=== PATIENT | female | born 1930 | race Caucasian/White ===

== ENCOUNTER 2017-08-06 10:26 | Emergency (ER) | payer OTHER ==
[2017-08-06] MEDS ORDERED: SPIRIVA18 MCG INH (11:55)
[2017-08-06] MEDS ORDERED: SIMVASTATIN10 M1 PO (11:56)
[2017-08-06] MEDS ORDERED: BENICAR HCT 401 EAC1 PO (11:56)
[2017-08-06] MEDS ORDERED: METOPROLOL SUCC50 M2 PO (11:57)
[2017-08-06] MEDS ORDERED: MONTELUKAST SOD10 M1 PO (11:58)
[2017-08-06] MEDS ORDERED: QVAR8.7 G1 INH (11:58)
[2017-08-06] MEDS ORDERED: LEVOTHYROXINE75 MCG PO (11:59)
[2017-08-06 12:16] LABS: ABSOLUTE BASOPHIL COUNT 0 /CUMM (0.0-0.2); ABSOLUTE EOSINOPHIL COUNT 0.1 /CUMM (0.0-0.7); ABSOLUTE GRANULOCYTE CT 5.4 /CUMM (1.4-6.5); ABSOLUTE LYMPH COUNT 1.3 /CUMM (1.2-3.4); ABSOLUTE MONOCYTE COUNT 0.4 /CUMM (0.10-0.60); BASOPHIL % 0.3 % (0.0-2.0); EOSINOPHIL % 1.1 % (0-5); GRANULOCYTE % 74.5 % (42.2-75.2); HEMATOCRIT 36.2 % (37-47); MEAN CORPUSCULAR HGB 25.9 PG (27.0-31.0); MEAN CORPUSCULAR HGB CONC 32.7 G/DL (33.0-37.0); MEAN CORPUSCULAR VOLUME 79.2 FL (81.0-99.0); MEAN PLATELET VOLUME 7.7 FL (7.4-10.4); PLATELET COUNT 262 /CUMM (130-400); RBC DISTRIBUTION WIDTH 17.5 % (11.5-14.5); RED BLOOD CELL CT 4.58 /CUMM (4.20-5.40); WHITE BLOOD CELL COUNT 7.2 /CUMM (4.8-10.8)
[2017-08-06 12:22] LABS: PT 11.4 SEC (9.4-12.5); PTT 37 SEC (25-37)
--- NOTE | 2017-08-06 12:54 | ED NOSE COMPLAINT ---
History of Present Illness General Chief Complaint: Epistaxis/Nasal Foreign Body Stated Complaint: EPIISTAXIS Source: patient Exam Limitations: no limitations Vital Signs & Intake/Output Vital Signs & Intake/Output Vital Signs Date Time Temp Pulse Resp B/P B/P Pulse O2 O2 Flow FiO2 Mean Ox Delivery Rate 08/06 1312 55 16 146/70 99 Room Air 08/06 1237 56 18 133/61 97 Room Air 08/06 1223 52 18 164/72 95 Room Air 08/06 1220 54 18 212/90 08/06 1218 95 08/06 1134 20 212/91 08/06 1031 98.6 60 18 200/80 98 Room Air Allergies Coded Allergies: losartan (HIVES/RASH 08/06/17) Reconcile Medications Beclomethasone Dipropionate (QVAR) 80 MCG AER.W.ADAP 2 PUF INH BID COPD ( Reported) Levothyroxine Sodium 75 MCG TABLET 1 TAB PO DAILY HYPOTHYROIDISM (Reported) Metoprolol Succinate 50 MG TAB.ER.24H 1 TAB PO DAILY HYPERTENSION (Reported) Montelukast Sodium 10 MG TABLET 1 TAB PO DAILY COPD (Reported) Olmesartan/Hydrochlorothiazide (Benicar Hct 40-25 MG Tablet) 40 MG-25 MG TABLET 1 TAB PO DAILY HYPERTENSION (Reported) Simvastatin (Simvastatin*) 10 MG TABLET 1 TAB PO QPM HYPERLIPIDEMIA (Reported ) Tiotropium [place] (Spiriva) 18 MCG CAP.W.DEV 1 CAP INH DAILY ASTHMA ( Reported) Triage Note: 86 YO FEMALE TO TRIAGE WITH EPISTAXIS. STATES NOSE HAS BEEN BLEEDING SINCE THIS AM. REPORTS HER NOSE HAS BEEN BLEEDING ON/OFF FOR DAYS. PT HYPERTENISVE IN TRIAGE, STATES SHE WAS UNABLE TO TAKE BP MEDS THIS AM DUE TO THE BLEEDING. PT TAKES DAILY ASA. BP 200/80 IN TRIAGE. Triage Nurses Notes Reviewed? yes Onset: Abrupt Duration: day(s):, constant Timing: recent history Injury Environment: home Severity: moderate No Modifying Factors: none HPI: 86-year-old female comes into the emergency room for evaluation of nosebleed. Patient reports that she's been having intermittent nosebleeds going on for the past month. She started on this morning. She comes in for further evaluation. She denies any headache lightheaded dizziness chest pain shortness of breath or any other associated symptoms. She reports that other than the nosebleed she feels completely fine. (Jose J Olmstead) Past History Travel History Traveled to [place] past 21 day No Medical History Any Pertinent Medical History? see below for history Cardiovascular: hypertension Respiratory: COPD Pneumonia Vaccine: 07/20/11 Surgical History Surgical History: non-contributory Psychosocial History Who do you live with Sister Services at Home None What is your primary language Pashto Tobacco Use: Never used Family History Hx Contributory? No (Jose J Olmstead) Review of Systems Review of Systems Constitutional: Reports: no symptoms. EENTM: Reports: see HPI. Respiratory: Reports: no symptoms. Cardiovascular: Reports: no symptoms. GI: Reports: no symptoms. Genitourinary: Reports: no symptoms. Musculoskeletal: Reports: no symptoms. Skin: Reports: no symptoms. Neurological/Psychological: Reports: no symptoms. Hematologic/Endocrine: Reports: no symptoms. Immunologic/Allergic: Reports: no symptoms. All Other Systems: Reviewed and Negative (Jose J Olmstead) Physical Exam Physical Exam General Appearance: well developed/nourished, mild distress Head: atraumatic Eyes: Bilateral: normal appearance. Nose: active bleeding (right nostril), small ooze anterior nostril Mouth/Throat: normal mouth inspection, pharynx normal Neck: normal inspection Cardiovascular/Respiratory: no respiratory distress Back: normal inspection Neurologic/Psych: awake, alert, oriented x 3, normal mood/affect Skin: intact, normal color, warm/dry (Jose J Olmstead) Progress Differential Diagnoses I considered the following diagnoses in my evaluation of the patient: Epistaxis , hypertension, hypertensive urgency, Plan of Care: Orders Procedure Date/time Status PARTIAL THROMBOPLASTIN TIME 08/06 1154 Complete PROTHROMBIN TIME 08/06 1154 Complete CBC WITHOUT DIFFERENTIAL 08/06 1154 Complete BASIC METABOLIC PANEL 08/06 1154 Complete Current Medications Sig/Didier Start time Last Medication Dose Stop Time Status Admin Labetalol HCl 10 MG ONCE ONE 08/06 1200 CAN (Trandate) 08/06 1201 Laboratory Tests 08/06/17 1203: Anion Gap 11, Estimated GFR 33 L, BUN/Creatinine Ratio 22.0, Glucose 118 H, Calcium 9.2, PT 11.4, INR 1.05, APTT 37, CBC w Diff NO MAN DIFF REQ, RBC 4.58, MCV 79.2 L, MCH 25.9 L, MCHC 32.7 L, RDW 17.5 H, MPV 7.7, Gran % 74.5, Lymphocytes % 18.3 L, Monocytes % 5.8, Eosinophils % 1.1, Basophils % 0.3, Absolute Granulocytes 5.4, Absolute Lymphocytes 1.3, Absolute Monocytes 0.4, Absolute Eosinophils 0.1, Absolute Basophils 0 Initial ED EKG: none Comments: 08/06/2017 1:06:44 PM I was able to see an area in the anterior aspect of the nostril that likely was the cause of the bleeding. Silver nitrate was used to cauterize area. She has had no recurrent bleeding. Her blood pressure is better. She'll follow-up with her primary care doctor and ear nose and throat doctor. lab work is baseline for patient. (Enoc FIELD,Jose J) Departure Departure Disposition: HOME OR SELF CARE Condition: Stable Clinical Impression Primary Impression: Epistaxis Secondary Impressions: Hypertension Referrals: Quinn URRUTIA,Bernardo Rawls MD,Naida (PCP/Family) Additional Instructions: Follow-up with ear nose and throat doctor provided. Take your blood pressure medication as prescribed. Return if any other concerns. Have blood pressure rechecked by primary care doctor. Please go over all results of today's visit with your primary care doctor. Contact your primary care doctor to let them know you were here in the emergency room. There may be nonspecific findings which may not be related to your visit today here in the emergency room but may require further evaluation and chronic monitoring by your primary care doctor. If you had a laceration today the chance of foreign body always remains. You should follow-up with your primary care doctor for recheck in 3-5 days for a wound check. If you had an x-ray done there is a chance that a fracture could have been missed on initial read and you should follow-up with your primary care doctor for repeat x-rays if symptoms persist. If your blood pressure was elevated here in the emergency room please have rechecked by [facility] primary care doctor within the next 48. If you were prescribed a narcotic here in the emergency room or any type of controlled substances you're not allowed to drive while taking this medication or operate any type of heavy machinery. Narcotics can make you feel lightheaded dizziness nausea and can cause constipation. You may need to sisal picker a stool softener. Thank you for choosing [facility] emergency room. Please return to the emergency room immediately if you have any other concerns worsening of symptoms. Departure Forms: Customer Survey General Discharge Information (Jose J Olmstead) PA/MACHINE PRINTER Co-Sign Statement Statement: ED Attending supervision documentation- x I saw and evaluated the patient. I have also reviewed all the pertinent lab results and diagnostic results. I agree with the findings and the plan of care as documented in the PA's/MACHINE PRINTER's documentation. [] I have reviewed the ED Record and agree with the PA's/MACHINE PRINTER's documentation. [] Additions or exceptions (if any) to the PAs/MACHINE PRINTER's note and plan are summarized below: [] (Chun URRUTIA,Jourdan)
[2017-08-06 13:12] VITALS: BP 146/70
== END 2017-08-06 13:13 ==
LOC: ERH 10:26
PROVIDERS: Physician Assistant Medical
DX: R04.0 Epistaxis (principal); I10 Essential (primary) hypertension
CPT/HCPCS: 96374; J0360